=== PATIENT | male | born 1980 | race Caucasian/White ===

== ENCOUNTER 2018-10-23 15:41 | Inpatient (IN) | payer OTHER ==
[~2018-10-23] VITALS: Ht 182.9 cm; Wt 103.2 kg
--- NOTE | ~2018-10-23 | EKG ---
[place], [place] ELECTROCARDIOGRAM REPORT NAME: YNES ELLIOTT UNIT #: [id number] ROOM: 531 DOCTOR: GIOVANY DRAFT REPORT BIRTHDATE: [birth year] [facility] Test Date: 2018-10-25 Test Time: 19:11:20 Pat Name: YNES ELLIOTT Department: 5E Room: 531 1 Gender: M Electrical Tech/Project Manager: Narayan Hassan : 1980 Requested By: SUMMER GOMES Order Number: [id number] Reading MD: Narayan Hill MD Measurements Intervals [place] Rate: 56 P: 48 RI: 146 QRS: 64 QRSD: 99 T: 17 QT: 382 QTc: 369 Interpretive Statements Sinus rhythm Probable anteroseptal infarct, old Baseline wander in lead(s) V6 Electronically Signed On 10-25-2018 18:20:22 PST by Narayan Hill MD CM:EKGRPT:ELECTROCARDIOGRAM REPORT 10 SUMMER ADAIR DRAFT REPORT SUMMER GOMES
[2018-10-23 15:42] VITALS: BP 150/90
[2018-10-23 16:10] LABS: BILIRUBIN NEGATIVE (NEGATIVE); BLOOD NEGATIVE (NEGATIVE); CLARITY CLOUDY (CLEAR); COLOR YELLOW (YELLOW); GLUCOSE NEGATIVE (NEGATIVE); KETONE NEGATIVE (NEGATIVE); LEUKO ESTERASE NEGATIVE (NEGATIVE); NITRITE NEGATIVE (NEGATIVE); PH 7.5 (5.0-9.0); SPECIFIC GRAVITY 1.015 (1.005-1.030); UROBILINOGEN 0.2 E.U./dl (0.2-1.0)
[2018-10-23 16:13] LABS: BASO % 0.5 % (0.0-1.0); EOS # 0.5 10*3/uL (0.0-0.4); EOS % 5.9 % (1.0-4.0); HEMATOCRIT 43.6 % (42.0-52.0); HEMOGLOBIN 14.9 g/dl (14.0-18.0); LYMPH # 2.6 10*3/uL (1.3-4.4); LYMPH % 33.8 % (27.0-41.0); MEAN CELL VOLUME 91.6 fl (80.0-94.0); MEAN CORPUSCULAR HGB 31.3 pg (27.0-31.0); MEAN CORPUSCULAR HGB CONC 34.2 g/dl (33.0-37.0); MONO # 0.5 10*3/uL (0.1-1.0); MONO % 6.3 % (3.0-9.0); NEUT % 53.2 % (47.0-73.0); PLATELET COUNT AUTOMATED 234 10*3/uL (130-400); RED BLOOD COUNT 4.76 10*6/uL (4.50-5.90); RED CELL DISTRI WIDTH 11.9 % (0-14.5); WHITE BLOOD COUNT 7.6 10*3/uL (4.8-10.8)
[2018-10-23 16:17] LABS: BACTERIA 4+
[2018-10-23 16:19] LABS: URINE AMPHETAMINES < 1000 (1000ng/ml); URINE BARBITURATES < 200 (200ng/ml); URINE BENZODIAZEPINES < 200 (200ng/ml); URINE CANNABINOIDS (THC) > 50 (50ng/ml); URINE COCAINE < 300 (300ng/ml); URINE METHADONE < 300 (300ng/ml); URINE OPIATES > 300 (300ng/ml)
[2018-10-23 16:27] LABS: ALBUMIN 3.9 gm/dl (3.1-4.5); ALKALINE PHOSPHATASE 61 U/L (45-117); BUN 15 mg/dl (7-24); CHLORIDE 105 mmol/L (98-107); CREATININE 1.03 mg/dL (0.70-1.30); ETHYL ALCOHOL < 3.0 mg/dl (<3); POTASSIUM 4.2 mmol/L (3.5-5.1); SGOT/AST 16 IU/L (3-35); SGPT/ALT 23 U/L (12-78); SODIUM 141 mmol/L (136-145); TOTAL PROTEIN 7.5 gm/dL (6.4-8.2)
[2018-10-23 16:27] LABS: URINE PHENCYCLIDINE < 25 (25ng/ml)
[2018-10-23 16:30] LABS: ACETAMINOPHEN (TYLENOL) < 2.0 ug/ml (10-30)
[2018-10-23 20:00] VITALS: BP 145/87
[2018-10-24] VITALS: BP 138/94
[2018-10-24 08:00] VITALS: BP 172/88
[2018-10-24 12:00] VITALS: BP 154/88
[2018-10-24 16:00] VITALS: BP 150/89
[2018-10-24 20:00] VITALS: BP 151/90
[2018-10-25] VITALS: BP 149/88
[2018-10-25 06:44] LABS: BASO % 0.3 % (0.0-1.0); EOS # 0.2 10*3/uL (0.0-0.4); EOS % 2.5 % (1.0-4.0); LYMPH # 2.7 10*3/uL (1.3-4.4); LYMPH % 30.3 % (27.0-41.0); MEAN CORPUSCULAR HGB 30.7 pg (27.0-31.0); MEAN PLATELET VOLUME 9.3 fl (9.6-12.3); MONO # 0.8 10*3/uL (0.1-1.0); MONO % 8.8 % (3.0-9.0); NEUT # 5.2 10*3/uL (2.3-7.9); NEUT % 57.8 % (47.0-73.0); PLATELET COUNT AUTOMATED 268 10*3/uL (130-400); RED BLOOD COUNT 5.22 10*6/uL (4.50-5.90); RED CELL DISTRI WIDTH 11.8 % (0-14.5); WHITE BLOOD COUNT 9.1 10*3/uL (4.8-10.8)
[2018-10-25 06:53] LABS: CREATININE 1.07 mg/dL (0.70-1.30)
[2018-10-25 08:29] VITALS: BP 146/90
[2018-10-25 12:16] VITALS: BP 148/68
[2018-10-25 16:00] VITALS: BP 158/91
[2018-10-25 17:49] VITALS: BP 172/88
[2018-10-25 19:39] LABS: BUN 16 mg/dl (7-24); CHLORIDE 104 mmol/L (98-107); POTASSIUM 4.1 mmol/L (3.5-5.1); SODIUM 140 mmol/L (136-145)
[2018-10-25 19:41] LABS: TROPONIN I < 0.015 ng/ml (<0.045)
[2018-10-25 20:00] VITALS: BP 144/88
[2018-10-26] VITALS: BP 157/102
[2018-10-26 07:00] LABS: BASO % 0.2 % (0.0-1.0); EOS % 0.2 % (1.0-4.0); HEMOGLOBIN 16.7 g/dl (14.0-18.0); LYMPH # 1.9 10*3/uL (1.3-4.4); LYMPH % 17.4 % (27.0-41.0); MEAN CELL VOLUME 89.2 fl (80.0-94.0); MEAN CORPUSCULAR HGB CONC 34.8 g/dl (33.0-37.0); MEAN PLATELET VOLUME 9.2 fl (9.6-12.3); MONO # 0.7 10*3/uL (0.1-1.0); NEUT # 8.2 10*3/uL (2.3-7.9); NEUT % 75.8 % (47.0-73.0); PLATELET COUNT AUTOMATED 291 10*3/uL (130-400); RED BLOOD COUNT 5.38 10*6/uL (4.50-5.90); RED CELL DISTRI WIDTH 11.9 % (0-14.5); WHITE BLOOD COUNT 10.8 10*3/uL (4.8-10.8)
[2018-10-26] MEDS ORDERED: Zofran4 MG SL (07:21)
[2018-10-26 07:36] LABS: CREATININE 1.14 mg/dL (0.70-1.30)
== END 2018-10-26 11:45 | disposition home or self-care (01) | DRG 897 ==
LOC: ED 15:41 → EDHOLD 16:54 → 5E 16:54
PROVIDERS: Internal Medicine; Nurse Practitioner Family; Student in an Organized Health Care Education/Training Program
DX: F11.23 Opioid dependence with withdrawal (principal); F41.9 Anxiety disorder, unspecified; I10 Essential (primary) hypertension; F12.10 Cannabis abuse, uncomplicated; E83.41 Hypermagnesemia; K21.9 Gastro-esophageal reflux disease without esophagitis; Z87.442 Personal history of urinary calculi; Z82.49 Family history of ischemic heart disease and other diseases of the circulatory system; Z80.1 Family history of malignant neoplasm of trachea, bronchus and lung; Z72.0 Tobacco use; Z71.6 Tobacco abuse counseling; Z88.0 Allergy status to penicillin

== ENCOUNTER 2019-01-11 12:55 | Emergency (ER) | payer OTHER ==
[~2019-01-11] VITALS: Ht 182.8 cm; Wt 99.8 kg
--- NOTE | ~2019-01-11 | EKG ---
[place], [place] ELECTROCARDIOGRAM REPORT NAME: YNES ELLIOTT UNIT #: [id number] ROOM: DOCTOR: EPIPHANY DRAFT REPORT BIRTHDATE: [birth year] [facility] Test Date: 2019-01-11 Test Time: 13:51:06 Pat Name: YNES ELLIOTT Department: Room: Gender: Wholesale Account Executive: Dali Oliveira : 1980 Requested By: SOFI KAUR Order Number: [id number] Reading MD: Narayan Hill MD Measurements Intervals [place] Rate: 47 P: 52 NM: 163 QRS: 69 QRSD: 97 T: 15 QT: 410 QTc: 363 Interpretive Statements Sinus bradycardia Cannot rule out old anteroseptal infarct Compared to ECG 10/25/2018 19:11:20 Sinus rhythm no longer present Electronically Signed On 01-11-2019 17:54:58 PST by Narayan Hill MD CM:EKGRPT:ELECTROCARDIOGRAM REPORT [id number] SOFI KAUR EPIPHANY DRAFT REPORT SOFI KAUR
[~2019-01-11 12:55] MED LIST: Zofran4 MG SL
[2019-01-11] MEDS ORDERED: NAPROSYN500 MG PO (15:04)
[2019-01-11] MEDS ORDERED: MEDROL DOSEPAK4 MG PO (15:05)
[2019-01-11] MEDS ORDERED: ROBAXIN500 M1 PO (15:05)
== END 2019-01-11 15:16 | disposition home or self-care (01) ==
LOC: ED 12:55
DX: S29.011A Strain of muscle and tendon of front wall of thorax, initial encounter (principal); F17.200 Nicotine dependence, unspecified, uncomplicated; Z88.0 Allergy status to penicillin; X50.9XXA Other and unspecified overexertion or strenuous movements or postures, initial encounter; Y93.89 Activity, other specified; Y92.89 Other specified places as the place of occurrence of the external cause; Y99.8 Other external cause status

== ENCOUNTER 2019-06-04 14:14 | Emergency (ER) | payer OTHER ==
[~2019-06-04] VITALS: Ht 182.8 cm; Wt 102.1 kg
[~2019-06-04 14:14] MED LIST changes: +MEDROL DOSEPAK4 MG PO; +NAPROSYN500 MG PO; +ROBAXIN500 M1 PO
[2019-06-04] MEDS ORDERED: MEDROL DOSEPAK4 MG PO (15:21)
== END 2019-06-04 15:32 | disposition home or self-care (01) ==
LOC: ED 14:14
DX: L23.7 Allergic contact dermatitis due to plants, except food (principal); F17.200 Nicotine dependence, unspecified, uncomplicated; Z88.0 Allergy status to penicillin; Z79.899 Other long term (current) drug therapy

== ENCOUNTER → 2021-08-12 | Outpatient (CLI) | payer OTHER | END | disposition home or self-care (01) | LOC: US 10:00 | PROVIDERS: ATTEND Family Medicine | DX: R10.13 Epigastric pain (principal) ==

== ENCOUNTER → 2021-09-14 | Outpatient (CLI) | payer OTHER | END | disposition home or self-care (01) | LOC: RAD 09:40 | PROVIDERS: ATTEND Family Medicine | DX: R10.84 Generalized abdominal pain (principal) ==